=== PATIENT | male | born 1955 | race Caucasian/White ===

== ENCOUNTER → 2021-06-02 12:32 | Outpatient (CLI) | payer MEDICARE, SELFPAY ==
--- NOTE | ~2021-06-02 | CT_ITS ---
EXAMINATION: CT chest abdomen pelvis wo con EXAM DATE: 06/02/2021 12:59 INDICATION: Left mid abdominal pain, cough, COPD. history of colon resection for diverticulitis. TECHNIQUE: Spiral CT of the chest, abdomen and pelvis was performed without contrast. Axial, marie l and sagittal images chest, abdomen and pelvis were reviewed. Coronal maximum intensity pixel image s of chest reviewed. The dose-length product (DLP) for this examination was 967.41 mGy-cm. The expo sure was tailored according to patient size (auto mA exposure control), and iterative reconstruction (ASIR) was used as additional dose reduction technique. Comparison is made to prior examination from 02/20/2019. FINDINGS: CHEST: Severe upper lobe, moderate lower lobe emphysema. Narrow cardiac silhouette from hyperinflate d lungs. Some scattered calcified lung granulomata. Small pericardial effusion. No pleural effusions . Small amount of mucus within the left mainstem bronchus. There is mild bronchiectasis. There is n o mediastinal, hilar or axillary lymphadenopathy. There is no pneumothorax. Heart normal in size. There is mild coronary arterial calcification, arterial sclerosis. ABDOMEN PELVIS: There is no interval change in the hyperdense mass located just above the left kidney , measuring 4.7 x 3.0 cm. Densities essentially unchanged on this exam versus the prior postcontrast exam indicating this is most likely a hemorrhagic cyst, probably exophytic off of the left kidney. T he liver, spleen, adrenal glands and pancreas are unremarkable. Gallbladder is unremarkable. No max iary obstruction. Several other renal lesions likely cysts. Moderate prostatomegaly, prostate measu ring 5.8 cm transverse dimension and bulging into the bladder base. The bladder is unremarkable. Th ere is no retroperitoneal or pelvic lymphadenopathy. There is mild to moderate scattered arterioscl erotic disease. Mildly dilated mid abdominal aorta up to 2.8 cm. There is extensive colonic diverticulosis. There is no adjacent inflammatory change to suggest diver ticulitis. Sigmoid resection with intact anastomosis. There are no findings to suggest appendiciti s. The stomach and small bowel are unremarkable. There is expected amount of colonic stool. No fr ee intraperitoneal gas. There are no osteoblastic or osteolytic lesions identified. IMPRESSION: 1. No acute chest abdomen or pelvis findings. 2. Emphysema and hyperinflation. 3. Left suprarenal mass probably hemorrhagic cyst. 4. Moderate prostatomegaly. 5. Mildly dilated abdominal aorta. 6. Extensive colonic diverticulosis. Reviewed, dictated and finalized at location A.
== END ==
PROVIDERS: PCP Family Medicine; Visit Provider Family Medicine
DX: J43.9 Emphysema, unspecified (principal); N28.89 Other specified disorders of kidney and ureter; N40.0 Benign prostatic hyperplasia without lower urinary tract symptoms; I77.811 Abdominal aortic ectasia; K57.30 Diverticulosis of large intestine without perforation or abscess without bleeding
CPT/HCPCS: 71250; 74176